=== PATIENT | male | born 1995 | race American Indian/Alaskan Native ===

== ENCOUNTER 2020-08-07 11:48 | Emergency (ER) | payer SELFPAY ==
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
[2020-08-07] MEDS ORDERED: KETOROLAC 30 MG/1 ML INJ IV ONE (12:04)
[2020-08-07] MEDS ORDERED: oxyCODONE /ACETAMINOPHEN 5-325MG TAB PO ONE (12:04)
--- NOTE | 2020-08-07 12:56 | XRay Report ---
XR forearm LT AP and lateral views INDICATION: cellulitis. COMPARISON: No relevant prior imaging study available. FINDINGS: No acute skeletal abnormality. No significant soft tissue abnormality. IMPRESSION: 1. No acute findings. Signer Name: Shalom Kwan MD Signed: 08/07/2020 12:52 PM Workstation Name: [id number]
[2020-08-07 14:59] LABS: Basophils % (Auto) 0.2 % (0.0-1.8); Eosinophils # (Auto) 0.1 K/mm3 (0.0-0.4); Eosinophils % (Auto) 0.8 % (0.0-4.3); Hematocrit 42.8 % (35.5-45.6); Hemoglobin 14.8 gm/dl (11.8-15.2); Lymphocytes # (Auto) 0.9 K/mm3 (1.2-5.4); Lymphocytes % (Auto) 9.6 % (13.4-35.0); Mean Corpuscular HGB Conc 35 % (32-34); Mean Corpuscular Volume 92 fl (84-94); Monocytes # (Auto) 0.7 K/mm3 (0.0-0.8); Monocytes % (Auto) 7.5 % (0.0-7.3); Platelet Count 221 K/mm3 (140-440); Red Blood Count 4.67 M/mm3 (3.65-5.03); Red Cell Distribution Width 13.5 % (13.2-15.2)
[2020-08-07 15:08] LABS: BUN/Creatinine Ratio 11; Blood Urea Nitrogen 10 mg/dL (9-20); Calcium 9.1 mg/dL (8.4-10.2); Hemolysis Index 9
[2020-08-07 15:58] VITALS: BP 105/67
== END 2020-08-07 16:00 | disposition home or self-care (01) ==
LOC: ED 11:48
DX: L03.114 Cellulitis of left upper limb (principal); Z79.899 Other long term (current) drug therapy
CPT/HCPCS: 36415; 73090; 80048; 85025; 96365; 96375; 99284; J1885